=== PATIENT | male | born 1950 | race Caucasian/White ===

== ENCOUNTER 2018-09-17 20:15 | Emergency (ER) | payer OTHER, MEDICAID ==
[~2018-09-17] VITALS: Ht 172.7 cm; Wt 90.7 kg
[2018-09-17 20:22] VITALS: BP_SYST 146
[2018-09-17 20:45] VITALS: BP_SYST 130
== END 2018-09-17 20:45 ==
LOC: SED 20:15
DX: Z02.89 Encounter for other administrative examinations (principal); I10 Essential (primary) hypertension
CPT/HCPCS: 93005; 99283